=== PATIENT | male | born 1950 | race Caucasian/White ===

== ENCOUNTER 2020-01-20 06:45 | Outpatient (CLI) | payer MEDICARE, OTHER, SELFPAY ==
--- NOTE | 2020-01-20 07:15 | USCV_ITS ---
Bradley Lnid Age: 69 Gender: M : 1950 Exam Date: 01/20/2020 06:08 Ordering Phys: Paul Jo MD ([email or web address]) Technologist: Ese Hayes Exam Location: [facility] [place] Indication: TR BP: 140 / 95 HR: 85 Rhythm: Atrial fibrillation Technical Quality: Good MEASUREMENTS (Male / Female) Normal Values 2D ECHO LV Diastolic Diameter PLAX 4.1 cm 4.2 - 5.9 / 3.9 - 5.3 cm LV Systolic Diameter PLAX 3.4 cm LV Chamber Size 4.8 cm IVS Diastolic Thickness 1.1 cm 0.6 - 1.0 / 0.6 - 0.9 cm IVS Systolic Thickness 1.3 cm LVPW Diastolic Thickness 1.2 cm 0.6 - 1.0 / 0.6 - 0.9 cm LVPW Systolic Thickness 1.1 cm RV Chamber Size 5.0 cm LVOT Diameter 2.0 cm LV Ejection Fraction 2D Teich 32.7 % LV Ejection Fraction MOD 2C 41.7 % LV Ejection Fraction 2C AL 45.5 % LA Diameter 3.5 cm LA Width 3.6 cm LA Height 4.8 cm RA Width 4.3 cm RA Height 6.0 cm M-MODE LV Diastolic Diameter MM 5.5 cm 4.2 - 5.9 / 3.9 - 5.3 cm LV Systolic Diameter MM 4.2 cm LV Ejection Fraction MM Teich 47.4 % IVS Diastolic Thickness MM 1.1 cm 0.6 - 1.0 / 0.6 - 0.9 cm IVS Systolic Thickness MM 1.1 cm LVPW Diastolic Thickness MM 0.9 cm 0.6 - 1.0 / 0.6 - 0.9 cm LVPW Systolic Thickness MM 1.4 cm RV Diastolic Diameter MM 2.5 cm Aortic Annulus Diameter 4.4 cm LA Ao Ratio MM 0.8 MV E Point Septal Separation 0.8 cm DOPPLER AV Peak Velocity 89.0 cm/s LVOT Peak Velocity 72.0 cm/s AV Area Cont Eq vti 2.6 cm squared AV Area Cont Eq pk 2.6 cm squared TR Peak Velocity 230.2 cm/s TR Peak Gradient 21.2 mmHg TR Mean Velocity 184.8 cm/s TR Mean Gradient 14.8 mmHg TR Velocity Time Integral 74.7 cm Right Atrial Pressure 3.0 mmHg Pulmonary Artery Systolic Pressu 24.2 mmHg PV Peak Velocity 53.0 cm/s FINDINGS Left Ventricle Normal left ventricular cavity size. Moderately decreased left ventricular systolic function. Global left ventricular hypokinesis. Left ventricular ejection fraction is estimated at 47 %. Due to [id number] radiation ejection fraction is not reliable at the same time cannot rule out wall motion abnormality. Diastolic function in the presence of atrial fibrillation cannot be assessed accurately. Right Ventricle The right ventricle is normal in size and function. Right Atrium Moderately increased right atrial size. Left Atrium Normal left atrial size. Mitral Valve Mildly thickened mitral valve. Mild mitral annular calcification. No mitral valve stenosis. Moderate mitral valve regurgitation. Aortic Valve Moderate aortic valve calcification. No aortic valve stenosis. Mild aortic valve regurgitation. Tricuspid Valve Moderate tricuspid valve regurgitation. Pulmonic Valve Structurally normal pulmonic valve without significant stenosis. There is no pulmonic regurgitation. Pericardium Normal pericardium without effusion. Aorta Normal ascending aorta dimension. CONCLUSIONS 1-Normal left ventricular cavity size. Moderately decreased left ventricular systolic function. Global left ventricular hypokinesis. Left ventricular ejection fraction is estimated at 47 %. Due to [id number] radiation ejection fraction is not reliable at the same time cannot rule out wall motion abnormality. Diastolic function in the presence of atrial fibrillation cannot be assessed accurately. 2-Mildly thickened mitral valve. Mild mitral annular calcification. No mitral valve stenosis. Moderate mitral valve regurgitation. 3-Moderate aortic valve calcification. No aortic valve stenosis. Mild aortic valve regurgitation. 4-Moderate tricuspid valve regurgitation. 5-Pulmonary artery systolic pressure is within normal limits. 6-There is no pericardial effusion. 7-When compared to the prior echocardiogram dated 02/04/2019 patient appeared to be in atrial fibrillation there is moderate left ventricle ejection fraction due to radiation from 55% to 47% now. There is worsening of mitral and tricuspid valve regurgitation and from mild to moderate to moderate now. Paul Jo MD (Electronically Signed) Final Date: 22 January 2020 18:08 S
== END 2020-01-20 06:46 | disposition home or self-care (01) ==
LOC: US 06:47
PROVIDERS: Family Provider Family Medicine; PCP Family Medicine; Visit Provider Internal Medicine Cardiovascular Disease
DX: I08.1 Rheumatic disorders of both mitral and tricuspid valves (principal); I48.91 Unspecified atrial fibrillation
CPT/HCPCS: 93306